=== PATIENT | female | born 1940 | race Caucasian/White ===

== ENCOUNTER 2017-04-17 08:04 | Day surgery (SDC) | payer MEDICARE, BC ==
--- NOTE | 2017-04-10 09:59 | HP ---
HISTORY AND PHYSICAL: DATE OF ADMISSION: 04/17/17 DATE OF HISTORY AND PHYSICAL: 04/04/17 CHIEF COMPLAINT: Cataracts. HISTORY OF PRESENT ILLNESS: This 77-year-old white female has been diagnosed with bilateral cataracts by Dr. Kervin Baron. She is scheduled for right eye cataract surgery under local anesthesia with IV sedation at the [facility] on April 17, the left eye will be done April 24. PAST MEDICAL HISTORY: The patient is under the care of Dr. Raghu Ernst. She has a history of hypertension, hypothyroidism, atrial fibrillation was diagnosed in November of 2013. She had a normal 2D echocardiogram at that time and negative sleep oximetry. She is maintained on warfarin. PAST SURGICAL HISTORY: Includes bilateral venous ligation of her legs; hysterectomy, left ovary and tube; laparoscopic cholecystectomy. CURRENT MEDICATIONS: 1. Enalapril 5 mg daily. 2. Metoprolol ER 50 mg 1-1/2 tablets every a.m., half tablet q.p.m. 3. Synthroid (levothyroxine) 200 mcg 5 days a week, 100 mcg 2 days a week. 4. Ambien p.r.n. for insomnia. 5. Warfarin as directed based on her INR. The patient was advised that she does not need to stop her warfarin for this surgery. ALLERGIES: AMPICILLIN has caused a rash in the past. SOCIAL HISTORY: The patient is , lives with her in the [facility]. She is a retired teacher. Alcohol, 1 to 2 glasses of white wine daily. She did use tobacco, quit about 15 years ago, but only smoked socially 1 to 2 cigarettes daily. REVIEW OF SYSTEMS: She complains of occasional low lumbar pain, occasional palpitations, which she has had for a number of years. Otherwise, review of systems is negative for detailed questioning, specifically she denies any dyspnea, cough, chest pain, or edema symptoms. PHYSICAL EXAMINATION GENERAL: A 77-year-old white female, in no acute distress at the present time. She looks younger than her stated age. VITAL SIGNS: Height 5 feet 4 inches, weight 157 pounds. Blood pressure of 120/ 68. HEENT: Eyes not examined. Ears normal. Mouth, tongue in the midline. Pharynx is clear. NECK: Supple. Good range of motion. No adenopathy. Thyroid is benign. BACK: Normal curvature. No tenderness noted of the spine or CVA areas. LUNGS: Clear. HEART: Rhythm is regular. No murmurs. Apical pulse, slightly bradycardic at 58. ABDOMEN: Flat. Active bowel sounds. Abdomen is soft, nontender. No obvious masses or organomegaly. EXTREMITIES: The patient ambulates independently, no assisting aids. Good range of motion of all 4 extremities. There is no edema. No cyanosis. No gross deformities. SKIN: Warm, dry, pale, pink. No worrisome lesions noted. She does have a reddened itchy rash between her breasts, in her central chest. DIAGNOSTIC STUDIES: EKG shows sinus bradycardia, borderline first-degree AV block. Q waves in II, III, and F. Possible previous inferior wall WI, poor R- wave progression. No ST-T abnormalities. No change in the EKG compared to 05/27. IMPRESSION: The patient is medically stable and cleared for her upcoming cataract surgery with Dr. Kervin Baron. The patient understands that there is no need for her to stop or hold her Coumadin for this surgery. ENDER SPANN NP CC: Raghu Ernst MD; Dr. Kervin Baron; [facility]* [id number]/[facility] #: [id number] [facility] [place]
[~2017-04-17 08:04] MED LIST: Acetaminophen TAB* 325 MG PO PRN; Buffered Lidocaine 0.9% SYRIN* 5 ML/SYR SYRINGE INTRADERM ONE
[2017-04-17] MEDS ORDERED: Midazolam* 1 MG/ML 2 ML VIAL (2 MG) ONE (09:15)
[2017-04-17] MEDS ORDERED: fentaNYL* 50 MCG/ML 2 ML VIAL (100 MCG VIAL) ONE (09:26)
[2017-04-17 09:55] VITALS: BP 134/78
[2017-04-17] MEDS ORDERED: Cyclopentolate 1% OPTH.SOL* 2 ML BTL ONE (12:50)
[2017-04-17] MEDS ORDERED: Flurbiprofen 0.03% OPTH.SOL* 2.5 ML BTL ONE (12:50)
[2017-04-17] MEDS ORDERED: Buffered Lidocaine 0.9% SYRIN* 5 ML/SYR SYRINGE ONE (12:50)
[2017-04-17] MEDS ORDERED: Neomycin/Polymy/Dex OPHTH.OIN* 3.5 GM ONE (12:50)
[2017-04-17] MEDS ORDERED: Phenylephrine 2.5% OPTH.SOL* 2 ML BTL ONE (12:50)
[2017-04-17] MEDS ORDERED: Tetracaine 0.5% OPTH.SOL 4 ML* 1 DROP BTL ONE (12:50)
[2017-04-17] MEDS ORDERED: Tropicamide 1% OPTH.SOL* BTL ONE (12:50)
[2017-04-17] MEDS ORDERED: Lidocaine 1% MPF* 2 ML VIAL ONE (12:50)
[2017-04-17] MEDS ORDERED: Phenylephr/Ketorolac 1%/0.3% OPH DROP BTL ONE (12:51)
--- NOTE | 2017-04-17 13:58 | OP ---
DATE OF OPERATION: 04/17/17 - [place] [facility] DATE OF : 44 SURGEON: Kervin Baron MD CLOTH BURLER: None. ANESTHESIOLOGIST: Kirk Bennett MD ANESTHESIA: Topical with intravenous sedation. PRE-OP DIAGNOSES: Cataract, right eye with pseudoexfoliation material, astigmatism and small pupil. POST-OP DIAGNOSES: Cataract, right eye with pseudoexfoliation material, astigmatism and small pupil. OPERATIVE PROCEDURE: Phacoemulsification and cataract extraction with posterior chamber Toric intraocular lens implant, right eye. COMPLICATIONS: None. BLOOD LOSS: None. DESCRIPTION OF PROCEDURE: The patient was seen preoperatively in the holding area where a genesis was made at the 6 o'clock position of the limbus of the cornea of the right eye while the patient was in an upright position. The patient was subsequently brought to the operating room and given a small amount of intravenous sedation. A drop of tetracaine was placed in her right eye. The patient was prepped and draped in the usual sterile fashion for ophthalmic surgery. Attention was directed to the right eye where a speculum was placed. The pupil was noted to be dilated to approximately 5 mm. Pseudoexfoliation material was noted at the pupillary margin and on the lens capsule. A paracentesis was created at the 11 o'clock position and 0.1 cc of 1% preservative-free lidocaine was injected into the anterior chamber followed by DisCoVisc. The DisCoVisc was able to dilate the pupil to approximately 5.5 mm. While the eye was digitally stabilized, a 2.75 mm keratome was used to create a triplanar clear corneal incision at the 9 o'clock position. A continuous curvilinear capsulorrhexis was created using a cystotome and Utrata forceps. The capsulorrhexis measured approximately 5.5 mm. Gentle hydrodissection was performed with BSS. Phacoemulsification was performed in a vwqspf-tiw-rhdueun technique to create 4 fragments. These were removed. Irrigation and aspiration was performed to remove cortical material from the lens capsule. These steps were performed with reduced pressure on the irrigating solution. A capsular bag was inflated with Healon. A marking pen and Castaneda marker were used to put a genesis at the 86-degree axis of the limbus. An SN6AT5 28.5 diopter lens was folded and inserted into the capsular bag. It was gently dialed using a Qomuty hook to the appropriate axial alignment. The Sinskey hook was placed through the paracentesis and used to stabilized the lens while irrigation and aspiration was performed to remove viscoelastic from the eye. Omidria had been added to the irrigating solution at the beginning of the case and served to keep the pupil at a reasonably dilated stage. BSS on a cannula was used to hydrate the corneal stroma and seal the wound. At the end of the case, the pupil was round and measured approximately 5 mm. The eye pressure appeared normal and the wound was watertight. The lens was centered, stable, and axially aligned. No zonular dehiscence was noted. The speculum was removed and topical Maxitrol ointment was placed on the surface of the eye. The eye was closed, patched, and shielded and the patient was sent to the recovery room in stable condition with postoperative instructions and followup appointment given. [id number]/[facility] #: [id number] MTDD
== END 2017-04-17 10:00 | disposition home or self-care (01) ==
LOC: OREAST 08:04
PROVIDERS: ATTEND Ophthalmology
DX: H25.11 Age-related nuclear cataract, right eye (principal); H52.201 Unspecified astigmatism, right eye; H57.03 Miosis; I10 Essential (primary) hypertension; E03.9 Hypothyroidism, unspecified; I48.91 Unspecified atrial fibrillation; Z79.01 Long term (current) use of anticoagulants; Z88.1 Allergy status to other antibiotic agents; Z87.891 Personal history of nicotine dependence; Z85.44 Personal history of malignant neoplasm of other female genital organs
CPT/HCPCS: A9270-GY; C9447; J2250; J3010; V2787

== ENCOUNTER 2017-04-24 09:43 | Day surgery (SDC) | payer MEDICARE, BC ==
[~2017-04-24 09:43] MED LIST changes: +Buffered Lidocaine 0.9% SYRIN* 5 ML/SYR SYRINGE ONE; +Cyclopentolate 1% OPTH.SOL* 2 ML BTL ONE; +Flurbiprofen 0.03% OPTH.SOL* 2.5 ML BTL ONE; +Lidocaine 1% MPF* 2 ML VIAL ONE; +Neomycin/Polymy/Dex OPHTH.OIN* 3.5 GM ONE; +Phenylephr/Ketorolac 1%/0.3% OPH DROP BTL ONE; +Phenylephrine 2.5% OPTH.SOL* 2 ML BTL ONE; +Tetracaine 0.5% OPTH.SOL 4 ML* 1 DROP BTL ONE; +Tropicamide 1% OPTH.SOL* BTL ONE
[2017-04-24 10:28] VITALS: BP 139/85
[2017-04-24] MEDS ORDERED: Midazolam* 1 MG/ML 2 ML VIAL (2 MG) ONE (11:03)
[2017-04-24] MEDS ORDERED: fentaNYL* 50 MCG/ML 2 ML VIAL (100 MCG VIAL) ONE (11:03)
--- NOTE | 2017-04-24 16:54 | OP ---
DATE OF OPERATION: 04/24/17 - [place] [facility] DATE OF : 44 SURGEON: Kervin Baron MD. NUCLEAR FUELS RECLAMATION ENGINEER: None. ANESTHESIOLOGIST: Dr. Christie ANESTHESIA: Topical with intravenous sedation. PRE-OP DIAGNOSES: Cataract with astigmatism left eye and pseudoexfoliation with small pupil left eye. POST-OP DIAGNOSES: Cataract with astigmatism left eye and pseudoexfoliation with small pupil left eye. OPERATIVE PROCEDURE: Phacoemulsification and cataract extraction with Toric posterior chamber intraocular lens implant, use of Malyugin ring left eye. COMPLICATIONS: None. BLOOD LOSS: None. DESCRIPTION OF PROCEDURE: The patient was seen preoperatively in the holding area where a genesis was made at the 6 o' clock position of the limbus while the patient was sitting in an upright position. The patient was subsequently brought to the operating room and given a small amount of intravenous sedation. A drop of tetracaine was placed in her left eye. The patient was prepped and draped in the usual sterile fashion for ophthalmic surgery. Attention was directed to the left eye where a speculum was placed. The pupil was noted to be approximately 4 mm in diameter after appropriate preoperative dilating drops. A paracentesis was created at the 5 o' clock position and 0.1 cc of 1% preservative-free lidocaine was injected into the anterior chamber followed by DisCoVisc. The pupil size did not change. Pseudoexfoliation material was noted on the anterior capsule. A triplanar clear corneal incision was created at the 3 o'clock position with a 2.75 mm keratome. A Malyugin ring was inserted into the anterior chamber and engaged the iris to open the pupil. A continuous curvilinear capsulorrhexis was created with cystotome and Utrata forceps. BSS on a cannula were used to generally hydrodissect the lens and the capsule. Omidria was added to the irrigating solution. The phacoemulsification was performed in divide and conquer technique to create 4 fragments which were removed. The intraocular pressure during the case was managed at a lower level by decreasing the appropriate settings on the phacoemulsification machine. This was done to avoid undue stress on the zonules. Four quadrants were created during phacoemulsification which were removed. Residual cortical material was gently removed using irrigation and aspiration. Healon was used to inflate the capsular bag. A Castaneda marker and marking pen were used just to genesis the 81-degree axis of the limbus. An SN6AT4 30 diopter lens was inserted into the capsular bag and dialed to the appropriate alignment with a Sinskey hook. The lens was held at this position while irrigation and aspiration was performed posterior to the lens. Supplemental DisCoVisc was added anterior to the lens and the Malyugin ring was removed atraumatically. The Sinskey hook was then placed again into the paracentesis to hold the lens in place while the remaining viscoelastic was removed from the eye. The Sinskey hook was removed. BSS on a cannula was used to hydrate the corneal stroma and seal the wound. At the end of the case, the pupil was round and measured approximately 4 mm. The eye pressure appeared normal. The wound was watertight. The lens was centered, stable, and axially aligned. Topical Maxitrol ointment was placed on the surface of the eye. The eye was closed, patched, and shielded and the patient was sent to the recovery room in stable condition with postoperative instructions and followup appointment given. [id number]/[facility] #: [id number] TARIQ
== END 2017-04-24 11:43 | disposition home or self-care (01) ==
LOC: OREAST 09:43
PROVIDERS: ATTEND Ophthalmology
DX: H26.8 Other specified cataract (principal); H52.202 Unspecified astigmatism, left eye; H21.562 Pupillary abnormality, left eye; E03.9 Hypothyroidism, unspecified; I10 Essential (primary) hypertension; I48.91 Unspecified atrial fibrillation; Z79.01 Long term (current) use of anticoagulants
CPT/HCPCS: A9270-GY; C9447; J2250; J3010; V2787

== ENCOUNTER 2019-06-28 13:38 | Emergency (ER) | payer MEDICARE, BC ==
[2019-06-28 13:47] VITALS: BP 182/78
--- NOTE | 2019-06-28 14:11 | UC ---
Dizzy HPI HPI Summary: patient complaint of dizziness followed by nausea, started today about 2-3 hours ago. SH has a hx of A-fib and is on Eliquis. SHe stepped off of last step of step ladder and fell backwards hitting head on floor 4 days ago. no LOC or change in mentation since fall ( concurs). Tosday she was gardening for 1 hour, felt dizzy after standing up, went to do errands and had lunch. went home and laid down and became even more dizzy - followed by nausea. SHe denies CP or SOB, no headache or ear pain, decreased hearing - History Of Current Complaint Chief Complaint: UCDizziness Stated Complaint: dizzy nausua Time Seen by Provider: 06/28/19 13:50 Hx Obtained From: Patient, Family/Information Technology Architect - Onset/Duration: Sudden Onset Timing: Intermittent Episode Lasting - few minutes Severity Initially: Mild Severity Currently: None Pain Intensity: 0 Character: Lightheaded, Dizzy Aggravating Factor(s): Position Change Alleviating Factor(s): Other - lying still fro few minutes Associated Signs And Symptoms: Positive: Nausea. Negative: Vomiting, Diaphoresis, Tinnitus - a-fib, Chest Pain, SOB, Palpitations, Unsteady Gait, Visual Changes - Allergies/Home Medications Allergies/Adverse Reactions: Allergies Allergy/AdvReac Type Severity Reaction Status Date / Time Iodinated Contrast Media Allergy Intermediate Hives Verified 06/28/19 13:47 [Iodinated Contrast- Oral and IV Dye] epinephrine Allergy heart Verified 06/28/19 13:47 palpitations Home Medications: Home Medications Apixaban* [Eliquis*] 5 mg PO BID 06/28/19 [History Confirmed 06/28/19] Magnesium Oxide [Magnesium] 500 mg PO DAILY 06/28/19 [History Confirmed 06/28/19 ] PMH/Surg Hx/FS Hx/Imm Hx Previously Healthy: Yes Endocrine History: Hypothyroidism Cardiovascular History: Hypertension, Atrial Fibrillation - Surgical History Surgical History: Yes Surgery Procedure, Year, and Place: 08/11/06 - LAMINECTOMY/microdiscectomy; 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), GALLBLADDER 2010, venous ligation 2003 [facility] [place], cataract removal 2016 [facility] [place] - Family History Known Family History: Positive: Cardiac Disease, Hypertension - Social History Occupation: Retired Lives: With Family Alcohol Use: Daily Alcohol Amount: 1-2 glasses of wine a day Substance Use Type: None Smoking Status (MU): Former Smoker Type: Cigarettes Amount Used/How Often: 2 daily Length of Time of Smoking/Using Tobacco: age 31 to age 57 Have You Smoked in the Last Year: No When Did the Patient Quit Smoking/Using Tobacco: 15 years ago Review of Systems All Other Systems Reviewed And Are Negative: Yes Constitutional: Positive: Negative Skin: Positive: Negative Eyes: Positive: Negative. Negative: Blurred Vision ENT: Positive: Negative. Negative: Ear Ache, Sinus Congestion Respiratory: Positive: Negative Cardiovascular: Positive: Negative. Negative: Palpitations, Chest Pain Gastrointestinal: Positive: Nausea - after dizziness Musculoskeletal: Positive: Negative Neurological: Positive: Other - dizziness. Negative: Headache, Weakness, Paresthesia Psychological: Positive: Negative Is Patient Immunocompromised?: No Physical Exam Triage Information Reviewed: Yes Appearance: Well-Appearing, No Pain Distress, Well-Nourished Vital Signs: Initial Vital Signs Temp 98.0 F 06/28/19 13:41 Pulse 66 06/28/19 13:41 Resp 16 06/28/19 13:41 BP 182/78 06/28/19 13:41 Pulse Ox 98 06/28/19 13:41 Vital Signs Reviewed: Yes Eyes: Positive: Conjunctiva Clear Respiratory Exam: Normal Respiratory: Positive: Lungs clear Cardiovascular Exam: Normal Cardiovascular: Positive: RRR, Brisk Capillary Refill Musculoskeletal Exam: Normal Musculoskeletal: Positive: Strength Intact Neurological Exam: Normal Neurological: Positive: Alert, Other: - able to precipitate dizziness with position change from supine to sitting and also with rapid head movement while sitting Psychological Exam: Normal Skin Exam: Normal Skin: Negative: Rashes Dizzy Course/Dx - Course Course Of Treatment: discussed case with Dr. Elizalde who agrees patient should reprot to ER now for further eval. (pt refuses EMS - will drive to [facility] ER now) pat left A&O x3 and ambulatory - Differential Dx/Diagnosis Differential Diagnosis/HQI/PQRI: Benign Paroxysmal Positional Vertigo, CVA, Dysrhythmia, Labyrinthitis, Other - cerebral hemhorrage Provider Diagnosis: Dizziness Discharge - Sign-Out/Discharge Documenting (check all that apply): Patient Departure All imaging exams completed and their final reports reviewed: No Studies - Discharge Plan Condition: Stable Disposition: HOME Referrals: Marcial Camara DO [Primary Care Provider] - Additional Instructions: Please go directly to [facility] emergency room for further evaluation of dizziness - Billing Disposition and Condition Condition: STABLE Disposition: Home
== END 2019-06-28 14:20 | disposition home health service (06) ==
LOC: UCEAST 13:38
DX: R42 Dizziness and giddiness (principal); E03.9 Hypothyroidism, unspecified; I10 Essential (primary) hypertension; I48.91 Unspecified atrial fibrillation; Z87.891 Personal history of nicotine dependence; Z79.01 Long term (current) use of anticoagulants
CPT/HCPCS: 93005; 99212; G0463

== ENCOUNTER 2019-06-28 14:39 | Emergency (ER) | payer MEDICARE, BC ==
--- NOTE | 2019-06-28 16:27 | ED ---
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 She states that she was feeling dizzy earlier today and expresses concerns of vertigo. She notes that the dizziness is aggravated by lying down but she states that she feels better. No alleviating factors noted. She mentions that she fell and hit her head 5 days QUALITY ASSURANCE INTERN and visited convenient care who recommended that she should get a brain CT. She also reports headache. She has Hx of HTN. - History Of Current Complaint Chief Complaint: EDDizziness Stated Complaint: DIZZINESS VERTIGO PER PTR Time Seen by Provider: 06/28/19 15:54 Hx Obtained From: Patient Onset/Duration: Resolved, Suddenly - 3 hours QUALITY ASSURANCE INTERN Aggravating Factor(s): Position Change - lying down Alleviating Factor(s): Nothing Associated Signs And Symptoms: Positive: Other: - pos - dizziness, headache - Allergies/Home Medications Allergies/Adverse Reactions: Allergies Allergy/AdvReac Type Severity Reaction Status Date / Time Iodinated Contrast Media Allergy Intermediate Hives Verified 06/28/19 14:47 [Iodinated Contrast- Oral and IV Dye] epinephrine Allergy heart Verified 06/28/19 14:47 palpitations PMH/Surg Hx/FS Hx/Imm Hx Endocrine/Hematology History: Reports: Hx Thyroid Disease Denies: Hx Diabetes Cardiovascular History: Reports: Hx Hypotension, Hx Hypertension - ON MEDS Denies: Hx Pacemaker/ICD Respiratory History: Reports: Hx Asthma Denies: Hx Chronic Obstructive Pulmonary Disease (COPD) GI History: Denies: Hx Ulcer History: Reports: Hx Kidney Stones - x2-3, none last 2 years Musculoskeletal History: Reports: Hx Arthritis, Hx Back Problems Denies: Hx Rheumatoid Arthritis, Hx Osteoporosis Sensory History: Reports: Hx Cataracts - both, Hx Contacts or Glasses Denies: Hx Hearing Aid Opthamlomology History: Reports: Hx Cataracts - both, Hx Contacts or Glasses Psychiatric History: Reports: Hx Anxiety Denies: Hx Panic Disorder - Cancer History Cancer Type, 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 Hx Chemotherapy: Yes Hx Radiation Therapy: No - Surgical History Surgery Procedure, Year, and Place: 08/11/06 - LAMINECTOMY/microdiscectomy; 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), GALLBLADDER 2010, venous ligation 2003 [facility], cataract removal 2016 [facility] Hx Anesthesia Reactions: No Infectious Disease History: No Infectious Disease History: Denies: Hx Hepatitis, Hx Human Immunodeficiency Virus (HIV), History Other Infectious Disease, Traveled Outside the [place] in Last 30 Days - Family History Known Family History: Positive: Cardiac Disease, Hypertension - Social History Alcohol Use: Daily Alcohol Amount: 1-2 glasses of wine a day Substance Use Type: Reports: None Smoking Status (MU): Former Smoker Type: Cigarettes Amount Used/How Often: 2 daily Length of Time of Smoking/Using Tobacco: age 31 to age 57 Have You Smoked in the Last Year: No Review of Systems Negative: Fever Neurological: Other - dizziness Positive: Headache All Other Systems Reviewed And Are Negative: Yes Physical Exam - Summary Physical Exam Summary: Appearance: The patient is well-nourished in no acute distress and in no acute pain. Skin: The skin is warm and dry and skin color reflects adequate perfusion. HEENT: The head is normocephalic and atraumatic. The pupils are equal and reactive. The conjunctivae are clear and without drainage. Nares are patent and without drainage. Mouth reveals moist mucous membranes and the throat is without erythema and exudate. The external ears are intact. The ear canals are patent and without drainage. The tympanic membranes are intact. Neck: The neck is supple with full range of motion and non-tender. There are no carotid bruits. There is no neck vein distension. Respiratory: Chest is non-tender. Lungs are clear to auscultation and breath sounds are symmetrical and equal. Cardiovascular: Heart is regular rate and rhythm. There is no murmur or rub auscultated. There is no peripheral edema and pulses are symmetrical and equal. Abdomen: The abdomen is soft and non-tender. There are normal bowel sounds heard in all four quadrants and there is no organomegaly palpated. Musculoskeletal: There is no back tenderness noted. Extremities are non-tender with full range of motion. There is good capillary refill. There is no peripheral edema or calf tenderness elicited. Neurological: Patient is alert and oriented to person, place and time. The patient has symmetrical motor strength in all four extremities. Cranial nerves are grossly intact. Deep tendon reflexes are symmetrical and equal in all four extremities. Psychiatric: The patient has an appropriate affect and does not exhibit any anxiety or depression. Triage Information Reviewed: Yes Vital Signs On Initial Exam: Initial Vitals Temp Pulse Resp BP Pulse Ox 97.8 F 61 16 176/80 97 06/28/19 14:43 06/28/19 14:43 06/28/19 14:43 06/28/19 14:43 06/28/19 14:43 Vital Signs Reviewed: Yes Diagnostics - Vital Signs Vital Signs Temp Pulse Resp BP Pulse Ox 06/28/19 14:43 97.8 F 61 16 176/80 97 - Laboratory Lab Statement: Any lab studies that have been ordered have been reviewed, and results considered in the medical decision making process. - CT Brain CT CT Interpretation Completed By: Radiologist Summary of CT Findings: IMPRESSION(S): NO ACUTE INTRACRANIAL PATHOLOGY. ED Physician has reviewed this report. Dizzy Course/Dx - Course Course Of Treatment: This sounds like a peripheral vertigo. I think the blow to the head a couple days ago is a red delgado. Her CT scan was negative. She is completely resolved at this point. I reviewed situation with Dr. Caceres who agreed that no further workup was necessary. I recommended that she return immediately if her symptoms return - Diagnoses Provider Diagnoses: Vertigo Discharge - Sign-Out/Discharge Documenting (check all that apply): Patient Departure - discharge Patient Received Moderate/Deep Sedation with Procedure: No - Discharge Plan Condition: Stable Disposition: HOME Patient Education Materials: Vertigo (ED) Referrals: Marcial Camara DO [Primary Care Provider] - 3 Days Additional Instructions: Please follow up with your primary care doctor in the next 2-3 days and return to the emergency department for worsening or concerning symptoms. - Billing Disposition and Condition Condition: STABLE Disposition: Home - Attestation Statements Document Initiated by Tovaibe: Yes Documenting Scribe: López Frank Provider For Whom Marlene is Documenting (Include Credential): Marek Kaufman MD Scribe Attestation: López Bennett, scribed for Marek Kaufman MD on 06/28/19 at 2117. Scribe Documentation Reviewed: Yes Provider Attestation: The documentation as recorded by the Lópze del rosario accurately reflects the service I personally performed and the decisions made by , Marek Kaufman MD Status of Scribe Document: Viewed
[2019-06-28 17:17] VITALS: BP 206/94
== END 2019-06-28 17:16 | disposition home or self-care (01) ==
LOC: ED 14:39
DX: R42 Dizziness and giddiness (principal); I10 Essential (primary) hypertension; J45.909 Unspecified asthma, uncomplicated; Z87.891 Personal history of nicotine dependence; Z88.8 Allergy status to other drugs, medicaments and biological substances; Z91.041 Radiographic dye allergy status; E03.9 Hypothyroidism, unspecified; I48.91 Unspecified atrial fibrillation; Z79.01 Long term (current) use of anticoagulants
CPT/HCPCS: 70450; 93005; 99212; 99283; G0463